=== PATIENT | female | born 1945 | race Caucasian/White ===

== ENCOUNTER 2023-10-12 08:44 | Emergency (ER) | payer MEDICARE, OTHER, SELFPAY ==
[2023-10-12 08:50] VITALS: BP 159/99
--- NOTE | 2023-10-12 09:01 | ED.GENMED ---
History of Present Illness
General
Chief Complaint: Head Injury
Source: patient
Exam Limitations: none
Time Seen by Provider: 10/12/23 08:54
Nursing documentation reviewed up to this point in time: agreed with
History of Present Illness
History of Present Illness:
78 yo female h/o hypothyroid, states 2 days ago, slipped on plastic store bag, fell, striking left forehead on pull out freezer door. No LOC. Had a big lump initially. Iced it, much improved. Next morning noted bruising around right eye and this
a.m. woke with bruising around both eyes. Went to and sent here for CT scan. Pt denies H/A, denies vision change, nausea, denies neck pain.
Past History
Past History
ED Past Surgical History: Gynecological and Tonsilectomy
Social History
Tobacco: Non-smoker
Personal:
Living: with family
Employment: Retired
Review of Systems
Review of Systems
Allergies reviewed?: Yes
All Other Systems: ROS reviewed and negative except as documented in HPI and ROS
Constitutional: Denies fever
Respiratory: Denies trouble breathing
Cardiac: Denies chest pain
ABD/GI: Denies abdominal pain or nausea
Musculoskeletal: Denies neck pain or back pain
Skin: Reports other (bruising around both orbits, left forehead, small area of swelling left forehead)
Neurological: Reports no symptoms
Phy Exam
Physical Exam
Physical Exam:
GENERAL: No acute distress. A&Ox3.
CONSTITUTIONAL: Afebrile.
EYES: PERRL, conjunctivae normal, EOM's intact, TMs normal, no hemotympanum
Neck: Supple
ENMT: moist mucus membranes, Pharynx nl
RESPIRATORY: Regular respirations, nonlabored, lungs clear.
CARDIOVASCULAR: Regular rate and rhythm, no murmurs, no rubs.
GI: Soft, nontender, normal BS
MUSCULOSKELETAL: Moves with ease. Well perfused.
SKIN: Warm, dry, pink. Bilateral periorbital ecchymosis, small area of swelling left forehead with surrounding ecchymosis.
PSYCH: Normal mood and affect. Well kept, interactive and appropriate
NEUROLOGIC: Awake, alert and oriented. No focal neurological deficits. Ambulates well with normal gait.
Course
Orders/Labs/Results
Orders:
Orders
10/12/23 09:00
CT Head W/o Iv Contrast Urgent
Comment:
Reason For Exam: fall, impact L ant scalp/forehead, racoon eyes
Vital Signs
Initial and Last Documented VS:
Initial Vital Signs
Temp Pulse Resp BP Pulse Ox
98.5 F 65 18 159/99 100
10/12/23 08:50 10/12/23 08:50 10/12/23 08:50 10/12/23 08:50 10/12/23 08:50
Last Documented Vital Signs
Temp Pulse Resp BP Pulse Ox
98.5 F 69 14 151/82 96
10/12/23 08:50 10/12/23 10:25 10/12/23 10:25 10/12/23 10:25 10/12/23 10:25
MDM/Problems Addressed
Differential Diagnosis Includes:
ICH, skull fx, contusion
MDM/Problems Addressed:
78 yo female h/o hypothyroid, states 2 days ago, slipped on plastic store bag, fell, striking left forehead on pull out freezer door. No LOC. Had a big lump initially. Iced it, much improved. Next morning noted bruising around right eye and this
a.m. woke with bruising around both eyes. Went to and sent here for CT scan. Pt denies H/A, denies vision change, nausea, denies neck pain.
151/82 Pt states she usually has much lower BP
No orbital bony tenderness, no indication for facial CT. The bilateral periorbital ecchymosis is most likely from gravitational pooling of blood from significant left forehead contusion.
CT neg
Pt with normal neuro exam
Reassured
Ambulated out with normal gait
*Critical Care Note
Total Time (30-74mins, 75-104mins- exclusive of procedures): Not Applicable
ED Attending Note
-
Portions of this chart may have been created with voice recognition software.� Occasional wrong word or��sound alike� substitutions may have occurred due to the inherent limitations of voice recognition software.
Discharge Plan
Departure
Patient Disposition: Home (Routine Discharge)
Date of Disposition: 10/12/23
Time of Disposition: 10:05
Patient with high blood pressure during this ER visit?: Yes
Condition: Good
Discharge Problem:
Traumatic hematoma of forehead, Head injury, Traumatic ecchymosis of left orbit, Traumatic ecchymosis of right orbit
Instructions: Head Injury in Adults ([facility]), [facility], Hematoma
Referrals:
Gurwinder Good MD [Family Provider] - As needed
Activity Restrictions/Additional Instructions:
As we discussed, your head CT shows nothing worrisome.
Activity as tolerated.
Interventions
Interventions:
*Risk Screen - Suicide Last Done: 10/12/23 08:50
*General Assessment Last Done: 10/12/23 08:50
*Neglect/Abuse Screening Last Done: 10/12/23 08:50
ED- Fall Risk Assessment Last Done: 10/12/23 10:28
*ED COVID-19 Vaccine History Last Done: 10/12/23 10:28
*Nursing Disposition Last Done: 10/12/23 10:28
ED- Neurological Assessment Last Done: 10/12/23 09:15
ED-Skin Assessment Last Done: 10/12/23 09:15
Discharge Date and Time
Discharge Date/Time: 10/12/23 10:28
Print Language: SAMI
[2023-10-12 10:25] VITALS: BP 151/82
== END 2023-10-12 10:28 | disposition home or self-care (01) ==
LOC: EMR 08:44
PROVIDERS: EMERGENCY PHYSICIAN Student in an Organized Health Care Education/Training Program; FAMILY PHYSICIAN Internal Medicine
DX: S09.90XA Unspecified injury of head, initial encounter (principal); S05.12XA Contusion of eyeball and orbital tissues, left eye, initial encounter; S05.11XA Contusion of eyeball and orbital tissues, right eye, initial encounter; W01.198A Fall on same level from slipping, tripping and stumbling with subsequent striking against other object, initial encounter; E03.9 Hypothyroidism, unspecified
CPT/HCPCS: 99284; 70450

== ENCOUNTER → 2024-02-15 13:03 | Outpatient (REF) | payer MEDICARE, OTHER, SELFPAY | LOC: HWWDC 13:03 | PROVIDERS: ATTENDING PHYSICIAN Internal Medicine | DX: Z13.820 Encounter for screening for osteoporosis (principal); Z12.31 Encounter for screening mammogram for malignant neoplasm of breast; Z78.0 Asymptomatic menopausal state | CPT/HCPCS: 77080 ==

== ENCOUNTER → 2024-04-23 06:25 | Outpatient (REF) | payer MEDICARE, OTHER, SELFPAY ==
[2024-04-23 07:33] LABS: % Basophils 1.5 % (0-2); % Eosinophils 4.6 % (0-6); % Immature Granulocytes 0.2 % (0-0.5); % Lymphocytes 23.4 % (20.5-51.1); % Monocytes 11.3 % (1.7-9.3); Absolute Basophils 0.1 10^3/uL (0-0.2); Absolute Eosinophils 0.2 10^3/uL (0-0.7); Absolute Lymphocytes 1.1 10^3/uL (1.2-3.4); Absolute Monocytes 0.5 10^3/uL (0.1-0.6); Absolute Neutrophils 2.7 10^3/uL (1.4-6.5); Hematocrit 46.1 % (37.0-47.0); Hemoglobin 15.4 g/dL (12.0-16.0); Mean Corp Hgb Conc. 33.4 g/dL (33.0-37.0); Mean Corpuscular Hgb 30.6 pg (27.0-31.0); Mean Corpuscular Volume 91.7 fL (81.0-99.0); Nucleated Red Blood Cells % 0 %; Platelet Count 236 10^3/uL (130-400); Red Blood Cell Count 5.03 10^6/uL (4.20-5.40); Red Cell Dist. Width 13.2 % (11.5-14.5); White Blood Cell Count 4.6 10^3/uL (4.8-10.8)
[2024-04-23 07:45] LABS: Urine Albumin Negative (Neg - Trace); Urine Bilirubin Negative (Negative); Urine Character Clear (Clear); Urine Color Yellow; Urine Glucose Negative (Negative); Urine Ketone Negative (Negative); Urine Leukocyte Negative (Negative); Urine Nitrite Negative (Negative); Urine Occult Blood 2+ (Negative); Urine Specific Gravity 1.025 (<1.030); Urine Urobilinogen Negative (Neg - 1+)
[2024-04-23 08:41] LABS: Urine Red Blood Cell 0-2 /HPF (0-2)
[2024-04-23 08:42] LABS: Urine White Cell 0-2 /HPF (0-5)
[2024-04-23 09:02] LABS: ALT (SGPT) 23 U/L (0-35); AST (SGOT) 27 U/L (14-36); Albumin 4.5 g/dl (3.5-5.0); Alkaline Phosphatase 81 U/L (38-126); Blood Urea Nitrogen 18 mg/dl (7-17); Calcium 10.3 mg/dl (8.4-10.2); Carbon Dioxide 29 mmol/L (22-30); Chloride 103 mmol/L (98-107); Glucose 97 mg/dl (70-99); HDL Cholesterol 86 mg/dl; LDL Cholesterol, Calculated 79 mg/dl; Potassium 4.6 mmol/L (3.5-5.1); Sodium 136 mmol/L (135-145); Total Bilirubin 1.4 mg/dl (0.2-1.3); Total Cholesterol 177 mg/dl (50-199); Total Protein 6.8 g/dl (6.3-8.2); Triglyceride 64 mg/dl (10-149); Very Low Density Lipoprotein 12 mg/dl (0-30); eGFR > 60.00
[2024-04-23 09:36] LABS: TSH Reflex To Free T4 5.07 uIU/ml (0.47-4.68)
[2024-04-23 10:06] LABS: Free T4 1.09 ng/dl (0.78-2.19)
== END ==
LOC: REG 06:25
PROVIDERS: ATTENDING PHYSICIAN Internal Medicine
DX: E78.5 Hyperlipidemia, unspecified (principal); E03.9 Hypothyroidism, unspecified; Q61.5 Medullary cystic kidney; R73.01 Impaired fasting glucose; Z00.00 Encounter for general adult medical examination without abnormal findings
CPT/HCPCS: 36415; 80053; 80061; 81003; 81015; 84439; 84443; 85025

== ENCOUNTER → 2024-07-01 06:45 | Outpatient (REF) | payer MEDICARE, OTHER, SELFPAY ==
[2024-07-01 08:23] LABS: Calcium 10.2 mg/dl (8.4-10.2)
[2024-07-01 08:59] LABS: Free T4 1.64 ng/dl (0.78-2.19)
[2024-07-01 09:13] LABS: TSH 0.63 uIU/ml (0.47-4.68)
== END ==
LOC: REG 06:45
PROVIDERS: ATTENDING PHYSICIAN Internal Medicine
DX: E03.9 Hypothyroidism, unspecified (principal); E83.52 Hypercalcemia
CPT/HCPCS: 36415; 82310; 84439; 84443